=== PATIENT | male | born 1935 | race Caucasian/White ===

== ENCOUNTER 2017-08-02 05:18 | Emergency (ER) | payer MEDICARE, BC ==
--- NOTE | 2017-08-02 05:42 | EDM.PDOC ---
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 Past medical history: As per history of present illness and as reviewed below otherwise noncontributory. Surgical history: As per history of present illness and as reviewed below otherwise noncontributory. Social history: No reported history of drug or alcohol abuse. Family history: As per history of present illness and as reviewed below otherwise noncontributory. Physical exam: HEENT: Atraumatic, normocephalic, pupils reactive, negative for conjunctival pallor or scleral icterus, mucous membranes moist, throat clear, neck supple, nontender, trachea midline. Lungs: Clear to auscultation, breath sounds equal bilaterally, chest nontender. Heart: S1S2, regular, negative for clicks, rubs, or JVD. Abdomen: Soft, nondistended, nontender. Negative for masses or hepatosplenomegaly. Negative for costovertebral tenderness. Pelvis: Stable nontender. Genitourinary: Some gross blood noted on his underwear genitalia otherwise grossly normal Rectal: Deferred. Extremities: Atraumatic, negative for cords or calf pain. Neurovascular unremarkable. Neuro: Awake, alert, oriented. Cranial nerves II through XII unremarkable. Cerebellum unremarkable. Motor and sensory unremarkable throughout. Exam nonfocal. Diagnostics: CBC CMP PT/INR BladderScan UA urine culture and sensitivity Therapeutics: To be determined Impression: #1 observation status post prostate biopsy to gross hematuria Definitive disposition and diagnosis as appropriate pending reevaluation and review of above. - Related Data Allergies Allergy/AdvReac Type Severity Reaction Status Date / Time No Known Allergies Allergy Verified 08/02/17 05:29 Home Meds: Home Meds Aspirin 0 mg PO DAILY 08/02/17 [History] Ciprofloxacin [Ciprofloxacin HCl] 500 mg PO BID 08/02/17 [History] Simvastatin [Zocor] 0 mg PO BEDTIME 08/02/17 [History] ED ROS GENERAL - Review of Systems Review Of Systems: ROS reveals no pertinent complaints other than HPI. ED EXAM, GENERAL - Physical Exam Exam: See Below (See dictation) Course - Vital Signs Text/Narrative:: Discuss case with Dr. Jose who agrees with BladderScan routine labs and disposition to home to continue current medicines and push fluids assuming no evidence of urinary retention or gross labral abnormality. Last Recorded V/S: Last Vital Signs Temp 36.9 C 08/02/17 07:48 Pulse 82 08/02/17 07:48 Resp 18 08/02/17 07:48 BP 128/60 08/02/17 07:48 Pulse Ox 94 L 08/02/17 07:48 - Orders/Labs/Meds Orders: Active Orders 24 hr Category Date Time Status CULTURE URINE [RM] Stat Lab 08/02/17 06:15 Received Labs: Laboratory Tests 08/02/17 08/02/17 08/02/17 Range/Units 05:47 05:47 05:47 WBC 13.13 H (4.0-11.0) K/uL RBC 5.13 (4.50-5.90) M/uL Hgb 14.8 (13.0-17.0) g/dL Hct 43.6 (38.0-50.0) % MCV 85.0 (80.0-98.0) fL MCH 28.8 (27.0-32.0) pg MCHC 33.9 (31.0-37.0) g/dL RDW Std Deviation 43.5 (28.0-62.0) fl RDW Coeff of Bernardo 14 (11.0-15.0) % Plt Count 189 (150-400) K/uL MPV 9.70 (7.40-12.00) fL Add Manual Diff YES Neutrophils % (Manual) 62 (48.0-80.0) % Band Neutrophils % 4 % Lymphocytes % (Manual) 13 L (16.0-40.0) % Monocytes % (Manual) 14 (0.0-15.0) % Eosinophils % (Manual) 6 (0.0-7.0) % Basophils % (Manual) 1 (0.0-1.5) % Nucleated RBC % 0.2 /100WBC Absolute Seg Neuts 8.1 Band Neutrophils # 0.5 Lymphocytes # (Manual) 1.7 Monocytes # (Manual) 1.8 Eosinophils # (Manual) 0.8 Basophils # (Manual) 0 Nucleated RBCs # 0 K/uL INR 1.21 H (0.86-1.11) Sodium 136 (136-146) mmol/L Potassium 4.3 (3.5-5.1) mmol/L Chloride 103 (98-110) mmol/L Carbon Dioxide 21 (21-31) mmol/L BUN 12 (6.0-23.0) mg/dL Creatinine 0.8 (0.6-1.5) mg/dL Est Cr Clr Drug Dosing TNP Estimated GFR (MDRD) > 60.0 ml/min Glucose 119 H (60-110) mg/dL Calcium 9.2 (8.8-10.8) mg/dL Total Bilirubin 0.7 (0.1-1.5) mg/dL AST 63 H (5-40) IU/L ALT 21 (8-54) IU/L Alkaline Phosphatase 693 H (40-150) Total Protein 7.6 (6.0-8.0) g/dL Albumin 4.4 (3.4-4.8) g/dL Globulin 3.2 (2.0-3.5) g/dL Albumin/Globulin Ratio 1.4 (1.3-2.8) Urine Color Urine Appearance Urine pH (5.0-8.0) Ur Specific Botkins (1.001-1.035) Urine Protein (NEGATIVE) mg/dL Urine Glucose (UA) (NEGATIVE) mg/dL Urine Ketones (NEGATIVE) mg/dL Urine Occult Blood (NEGATIVE) Urine Nitrite (NEGATIVE) Urine Bilirubin (NEGATIVE) Urine Ictotest Urine Urobilinogen (<2.0) EU/dL Ur Leukocyte Esterase (NEGATIVE) Urine RBC (0-2/HPF) Urine WBC (0-5/HPF) Ur Epithelial Cells (NONE-FEW) Urine Bacteria (NEGATIVE) 08/02/17 Range/Units 06:15 WBC (4.0-11.0) K/uL RBC (4.50-5.90) M/uL Hgb (13.0-17.0) g/dL Hct (38.0-50.0) % MCV (80.0-98.0) fL MCH (27.0-32.0) pg MCHC (31.0-37.0) g/dL RDW Std Deviation (28.0-62.0) fl RDW Coeff of Bernardo (11.0-15.0) % Plt Count (150-400) K/uL MPV (7.40-12.00) fL Add Manual Diff Neutrophils % (Manual) (48.0-80.0) % Band Neutrophils % % Lymphocytes % (Manual) (16.0-40.0) % Monocytes % (Manual) (0.0-15.0) % Eosinophils % (Manual) (0.0-7.0) % Basophils % (Manual) (0.0-1.5) % Nucleated RBC % /100WBC Absolute Seg Neuts Band Neutrophils # Lymphocytes # (Manual) Monocytes # (Manual) Eosinophils # (Manual) Basophils # (Manual) Nucleated RBCs # K/uL INR (0.86-1.11) Sodium (136-146) mmol/L Potassium (3.5-5.1) mmol/L Chloride (98-110) mmol/L Carbon Dioxide (21-31) mmol/L BUN (6.0-23.0) mg/dL Creatinine (0.6-1.5) mg/dL Est Cr Clr Drug Dosing Estimated GFR (MDRD) ml/min Glucose (60-110) mg/dL Calcium (8.8-10.8) mg/dL Total Bilirubin (0.1-1.5) mg/dL AST (5-40) IU/L ALT (8-54) IU/L Alkaline Phosphatase (40-150) Total Protein (6.0-8.0) g/dL Albumin (3.4-4.8) g/dL Globulin (2.0-3.5) g/dL Albumin/Globulin Ratio (1.3-2.8) Urine Color RED Urine Appearance CLOUDY Urine pH 7.0 (5.0-8.0) Ur Specific Botkins 1.010 (1.001-1.035) Urine Protein >=300 (NEGATIVE) mg/dL Urine Glucose (UA) NEGATIVE (NEGATIVE) mg/dL Urine Ketones 15 H (NEGATIVE) mg/dL Urine Occult Blood LARGE H (NEGATIVE) Urine Nitrite POSITIVE H (NEGATIVE) Urine Bilirubin MODERATE H (NEGATIVE) Urine Ictotest NEGATIVE Urine Urobilinogen 4.0 H (<2.0) EU/dL Ur Leukocyte Esterase MODERATE (NEGATIVE) Urine RBC TOO NUMBEROUS TO CT (0-2/HPF) Urine WBC 1-5 (0-5/HPF) Ur Epithelial Cells NOT SEEN (NONE-FEW) Urine Bacteria FEW (NEGATIVE) Meds: Medications Discontinued Medications Generic Name Dose Route Start Last Admin Trade Name Tesfaye PRN Reason Stop Dose Admin Tamsulosin HCl 0.4 mg 08/02/17 06:40 08/02/17 06:45 Flomax PO 08/02/17 06:41 0.4 mg ONETIME ONE Administration Departure - Departure Disposition: Home, Self-Care 01 Clinical Impression: Hematuria Qualifiers: Hematuria type: gross Qualified Code(s): R31.0 - Gross hematuria - Discharge Information Referrals: Aram Jose MD [Primary Care Provider] - Forms: ED Department Discharge Additional Instructions: The following information is given to patients seen in the emergency department who are being discharged to home. This information is to outline your options for follow-up care. We provide all patients seen in our emergency department with a follow-up referral. The need for follow-up, as well as the timing and circumstances, are variable depending upon the specifics of your emergency department visit. If you don't have a primary care physician on staff, we will provide you with a referral. We always advise you to contact your personal physician following an emergency department visit to inform them of the circumstance of the visit and for follow-up with them and/or the need for any referrals to a consulting specialist. The emergency department will also refer you to a specialist when appropriate. This referral assures that you have the opportunity for followup care with a specialist. All of these measure are taken in an effort to provide you with optimal care, which includes your followup. Under all circumstances we always encourage you to contact your private physician who remains a resource for coordinating your care. When calling for followup care, please make the office aware that this follow-up is from your recent emergency room visit. If for any reason you are refused follow-up, please contact the emergency department at and ask to speak to the emergency department charge nurse. [facility] [address] [place] [address] Please call and make a follow-up appointment with the urologist on Friday as he discussed with you. Please continue the antibiotics that you are on. Please return to ER as needed and as discussed. Please drain your Evans catheter as shown by nursing. <Portia Nguyen - Last Filed: 08/02/17 09:50> ED HPI GENERAL MEDICAL PROBLEM - History of Present Illness INITIAL COMMENTS - FREE TEXT/NARRATIVE: This is Dr. Nguyen dictating an addendum note as I have been asked to follow up on this case. Nursing was able to get a 12 Maori coud in which has drained approximately 300 mL. We will continue to monitor the outflow and await Dr. Jose to evaluate the patient for further care and disposition. We are still awaiting Dr. Jose; family is aware that he would be here approximately 10 AM and they're comfortable with waiting. The coud that is in place continues to drain. 200 more cc have drained and the patient feels comfortable. He is otherwise stable. Please also note that the patient is still on Cipro from his procedure and I will discuss that antibiotic in light of today 's labs with . 0945: Dr Jose here seeing the patient and would like to give the patient 1 L of LR IV fluid, a dose of Lasix, and then discharged home with his catheter. He would like the patient to continue on the Cipro and he will see the patient in his office on Friday. He has reviewed the testing results with me. Patient and family are aware of this plan and reasons to return to the ER. Impression hematuria status post prostatic biopsy stable hypogastric area Pain Score (Numeric/FACES): 4 Departure - Departure Time of Disposition: 09:49 Condition: Good
[2017-08-02 06:16] LABS: CHLORIDE,CL 103 mmol/L (98-110); SODIUM,NA 136 mmol/L (136-146)
[2017-08-02] MEDS ORDERED: Tamsulosin 0.4 MG Cap.ER PO ONE (06:40)
[2017-08-02] MEDS ORDERED: Lactated Ringers 1,000 ML IV SCH (09:45)
[2017-08-02] MEDS ORDERED: Furosemide 40 MG/4 ML VIAL IVPUSH ONE (09:49)
[2017-08-02 11:31] VITALS: BP 128/71
== END 2017-08-02 11:12 | disposition home or self-care (01) ==
LOC: MW.ED 05:18
DX: R31.0 Gross hematuria (principal); C61 Malignant neoplasm of prostate
CPT/HCPCS: 36415; 51798; 80053; 81001; 85025; 85610; 87086; 96361; 96374; 99284; A9270; J1940; J7120; 99283